=== PATIENT | male | born 1980 | race Two or more races ===

== ENCOUNTER 2024-10-26 11:57 | Emergency (ER) | payer OTHER ==
[2024-10-26 12:10] VITALS: BP 112/63; PULSE 78; RESP 19; TEMP 98.5; BMI 25.9
[2024-10-26] MEDS ORDERED: diazePAM 5 MG TABLET ONE (12:36)
[2024-10-26] MEDS ORDERED: KETOROLAC TROMETHAMINE 30 MG/1 ML VIAL ONE (12:36)
[2024-10-26] MEDS: diazePAM 5 MG TABLET PO ONE (12:40)
[2024-10-26] MEDS: KETOROLAC TROMETHAMINE 30 MG/1 ML VIAL IM ONE (12:40)
== END 2024-10-26 12:44 | disposition home or self-care (01) ==
LOC: JERFT 11:57
PROC: 3E0233Z Introduction of Anti-inflammatory into Muscle, Percutaneous Approach (ICD-10-PCS; principal; 2024-10-26)
DX: M54.50 Low back pain, unspecified (principal); X50.1XXA Overexertion from prolonged static or awkward postures, initial encounter
CPT/HCPCS: 99284-25